=== PATIENT | male | born 1995 | race Caucasian/White ===

== ENCOUNTER 2018-02-03 18:14 | Inpatient (IN) | payer BC ==
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
[2018-02-03 18:45] LABS: PLATELET COUNT 268 10^3/uL (150-400)
[2018-02-03 19:07] LABS: CREATINE KINASE 879 IU/L (0-224)
[2018-02-03] MEDS ORDERED: ONDANSETRON 4 MG/2 ML VIAL IVP PRN (19:30)
[2018-02-03] MEDS ORDERED: ACETAMINOPHEN 325 MG TAB PO PRN (19:30)
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
[2018-02-03] MEDS: HYDROmorphONE/DILAUDID 1 MG/ML INJ IVP PRN ×2 (21:09→23:55)
[2018-02-03] MEDS: NS 1,000 ML IV SCH (21:10)
[2018-02-03] MEDS ORDERED: IBUPROFEN 600 MG TAB PO SCH (22:00)
[2018-02-04] MEDS: HYDROmorphONE/DILAUDID 1 MG/ML INJ IVP PRN ×5 (01:56→20:42)
[2018-02-04] MEDS ORDERED: KETOROLAC 30 MG/1 ML SDV IVP PRN (02:26)
[2018-02-04] MEDS: oxyCODONE IR 5 MG TAB PO PRN ×6 (02:39→20:42)
[2018-02-04 05:59] LABS: CREATINE KINASE 2819 IU/L (0-224)
[2018-02-04] MEDS: NS 1,000 ML IV SCH ×2 (08:15→17:36)
[2018-02-04] MEDS: PANTOPRAZOLE SODIUM 40 MG TAB PO SCH (08:18)
[2018-02-04] MEDS: GABAPENTIN 300 MG CAP PO SCH ×3 (08:23→22:29)
[2018-02-04] MEDS: KETOROLAC 15 MG/1 ML SDV IVP SCH ×2 (12:04→17:34)
--- NOTE | 2018-02-04 12:38 | TRAUMAPNT ---
Trauma Tertiary Progress Note Assessment/Plan: No new overnight events. C/O severe pain in foot and ankle. Unable to stand or bear weight. No leg complaints. No abd complaints. No other new concerns. AVSS. neck nontender. heart reg. lungs clear. abd nontender. normal left leg. right leg normal thigh and calf. exquisite right foot swelling and tenderness. difficulty moving ankle but able to flex and extend a few degrees. skin intact. compartments feel soft. ecchymosis (no ischemia) lateral foot. Crush injury right foot, rhabdo. Will obtain MRI to assess for ligamentous injury. CPK elevation - cont IVF and hydration. PT/OT. Pain control - add toradol and gabapentin. Final reccs to follow. Objective: Vital Signs Temp Pulse Resp BP Pulse Ox 36.7 C 81 14 122/68 H 91 L 02/04/18 07:33 02/04/18 07:33 02/04/18 07:33 02/04/18 07:33 02/04/18 07:33 Laboratory Results 02/04/18 04:58 02/03/18 02/04/18 02/05/18 05:59 05:59 05:59 Intake Total 2750 Output Total 700 Balance 2049
[2018-02-04] MEDS: ENOXAPARIN 40 MG/0.4 ML SYR SC SCH (13:40)
--- NOTE | 2018-02-04 13:56 | ASMTCMCOM ---
CM Note CM Note Notes: Pt has LE crush injury while hiking. Pt has partner. Pt can stay with a friend with less stairs at d/c. PT/OT rec home. Anticipate pt will d/c when medically stable, no CM d/c needs identified. CM available for changes/needs. Date Signed: 02/04/2018 01:55 PM Electronically Signed By:TAYLOR Corea
--- NOTE | 2018-02-04 17:24 | PDMN ---
Medical Necessity Medical necessity: Change to inpt as of 02/04/18 @ 17:10. Pt meets inpt criteria per MD order and Musculoskeletal Disease GRG. 22 y/o admitted w/severe R foot/ankle pain after sustaining crush injury to R foot. Upgraded to inpt as pt is unable to bear wt on R foot, persistent severe pain requiring IV pain meds (Dilaudid, Toradol) roughly every 2-4 hrs in addition to PO pain meds. CPK elev, rhabdo, cont IVF. Anticipate>2MN for ongoing eval/management of above.
--- NOTE | 2018-02-04 18:46 | TRAUMAPN ---
Trauma Progress Note Assessment/Plan: MRI reviewed with rads - ligamentous injuries only. pain slightly improved on pm rounds. unable to bear weight still. gabapentin and toradol helping. foot remains soft without concerns for compartment syndrome. continued supportive care. walking boot when begins to ambulate. reviewed MRI findings with ortho who remains in agreement with above plan. voiding large volume clear, light urine this evening - repeat CPK in am to ensure improvement. No new overnight events. C/O severe pain in foot and ankle. Unable to stand or bear weight. No leg complaints. No abd complaints. No other new concerns. AVSS. neck nontender. heart reg. lungs clear. abd nontender. normal left leg. right leg normal thigh and calf. exquisite right foot swelling and tenderness. difficulty moving ankle but able to flex and extend a few degrees. skin intact. compartments feel soft. ecchymosis (no ischemia) lateral foot. Crush injury right foot, rhabdo. Will obtain MRI to assess for ligamentous injury. CPK elevation - cont IVF and hydration. PT/OT. Pain control - add toradol and gabapentin. Final reccs to follow. Objective: Vital Signs Temp Pulse Resp BP Pulse Ox 36.6 C 66 10 L 109/70 90 L 02/04/18 15:48 02/04/18 15:48 02/04/18 15:48 02/04/18 15:48 02/04/18 15:48
[2018-02-05] MEDS: KETOROLAC 15 MG/1 ML SDV IVP SCH ×2 (03:12→05:47)
[2018-02-05] MEDS: oxyCODONE IR 5 MG TAB PO PRN ×4 (03:12→12:04)
[2018-02-05 06:22] LABS: CREATINE KINASE 1329 IU/L (0-224)
[2018-02-05 08:34] VITALS: BP 124/65
[2018-02-05] MEDS: GABAPENTIN 300 MG CAP PO SCH ×2 (08:53→12:36)
[2018-02-05] MEDS: PANTOPRAZOLE SODIUM 40 MG TAB PO SCH (08:54)
[2018-02-05] MEDS: ENOXAPARIN 40 MG/0.4 ML SYR SC SCH (08:54)
[2018-02-05 09:01] LABS: PLATELET COUNT 237 10^3/uL (150-400)
[2018-02-05] MEDS: IBUPROFEN 800 MG TAB PO SCH ×2 (09:16→12:04)
--- NOTE | 2018-02-05 10:54 | TRAUMAPN ---
Trauma Progress Note - Problem/Surgery Performed (1) Tibialis posterior tendinopathy Assessment/Plan: with partial distal tear/discussed immobilization and ortho and/or podiatry follow up after returning to [place] (2) peroneal longus tendinopathy Assessment/Plan: with associated partial tear/discussed immobilization and ortho or podiatry follow up after returning to [place] (3) Crushing injury of right ankle, initial encounter Assessment/Plan: mechanism of injury, no secondary injuries identified (4) Rhabdomyolysis Assessment/Plan: resolving with observation and hydration/no signs or symptoms of compartment syndrome I recommend continuing LMWH 40 mg SC daily for 10 days Qualifiers: Rhabdomyolysis type: traumatic Encounter type: initial encounter Qualified Code(s): T79.6XXA - Traumatic ischemia of muscle, initial encounter Assessment/Plan: patient is ambulating with crutches and is to be fitted with a walking boot prior to discharge. He plans on driving home to [place] when released and was instructed to follow up with his PCP this coming week. Rx for Oxy-IR, Lovenox, Senokot, Ibuprofen, Neurontin on chart Subjective: resting comfortably with friends from [place] at the bedside. Has not been fitted for a walking boot yet Objective: Vital Signs Temp Pulse Resp BP Pulse Ox 36.7 C 93 16 124/65 H 90 L 02/05/18 08:00 02/05/18 08:00 02/05/18 08:00 02/05/18 08:00 02/05/18 08:00 Laboratory Results 02/05/18 05:20 02/05/18 05:20 02/04/18 02/05/18 02/06/18 05:59 05:59 05:59 Intake Total 350 450 Balance 350 450 - C-Spine Clearance Cervical Spine Cleared: Yes Provider who Cleared Cervical Spine: Tanvir Physical Exam - Physical Exam General Appearance: alert, mild distress Respiratory: lungs clear Cardiac/Chest: regular rate, rhythm Peripheral Pulses: 1+: dorsalis-pedis (R) (difficult to palpate due to swelling) , 4+: dorsalis-pedis (L) Extremities: other (swelling right foot, ankle and lateral calf. compartments soft, but tender. good cap refill) Neuro/Psych: alert, normal mood/affect, oriented x 3, sensory deficit ( hypoesthesia plantar, hyperesthesia dorsum of foot) Time Spent w/Patient (minutes): 25
[2018-02-05] MEDS ORDERED: SENNOSIDES/DOCUSATE SODIUM TAB PO SCH (11:00)
[2018-02-05] MEDS ORDERED: PNEUMOCOCCAL 0.5ML VACCINE VIAL (PNEUMOVAX 23) IM ONE (11:24)
--- NOTE | 2018-02-05 12:06 | ASMTLACE ---
LACE Length of stay for Answers: Less than 1 day current admission Acuity / Level of Answers: Yes Care: Did the patient have an inpatient admission? Comorbidities - select Answers: Other Notes: foot fractures all that apply # of Emergency department Answers: 1-2 visits in the last 6 months Score: 5 Date Signed: 02/05/2018 12:05 PM Electronically Signed By:Kayleen Sharp
--- NOTE | 2018-02-05 12:20 | ASDISCHSUM ---
Discharge Information Plan Status:Home with No Needs Medically Cleared to Leave:02/04/2018 Discharge Date:02/04/2018 CM D/C Disposition:Home, Routine, Self-Care ADT D/C Disposition:Home, Routine, Self-Care Projected Discharge Date:02/05/2018 12:00 AM Transportation at D/C:Friend Discharge Delay Reason: Follow-Up Date:02/05/2018 12:00 AM Discharge Slot: Final Diagnosis:foot multiple fractures Placement Information Patient Contact Information Contact Name:BETO Relationship: Address:[facility] [address] Work Phone: City:[facility] Phone: State/Zip Code:[place] [address] Email: Financial Information Financial Class:BC Primary Plan Desc: OUT OF STATE [facility] Primary Plan Number:[id number] Secondary Plan Desc: Secondary Plan Number: Assessment Information LACE LACE Length of stay for Answers: Less than 1 day current admission Acuity / Level of Answers: Yes Care: Did the patient have an inpatient admission? Comorbidities - select Answers: Other Notes: foot fractures all that apply # of Emergency department Answers: 1-2 visits in the last 6 months Score: 5 Date Signed: 02/05/2018 12:05 PM Electronically Signed By:Kayleen Sharp [facility] CM Progress Note CM Note CM Note Notes: Pt has LE crush injury while hiking. Pt has partner. Pt can stay with a friend with less stairs at d/c. PT/OT rec home. Anticipate pt will d/c when medically stable, no CM d/c needs identified. CM available for changes/needs. Date Signed: 02/04/2018 01:55 PM Electronically Signed By:TAYLOR Corea Case Management Discharge Plan Note Case Management Discharge Discharge Order Complete? Answers: Yes Patient to Obtain Answers: via Family Medications Transportation Arranged Answers: Family/Friends Transport will Pick (Date 02/05/2018 12:00 AM & Time) Family Notified Answers: Yes Notes: by pt; friends in room Discharge Comments Notes: Spoke with pt in the room. Pt to discharge home to friend's house. Pt requested information on billing and was given business card for financial counseling. Financial counseling notified that pt inquired. No CM needs notes at this time. Date Signed: 02/05/2018 12:19 PM Electronically Signed By:Kayleen Sharp Intervention Information
[2018-02-05] MEDS ORDERED: ACETAMINOPHEN 500 MG TAB PO SCH (14:00)
--- NOTE | 2018-02-05 14:10 | PDDCSUM ---
Discharge Summary Discharge Summary: #[id number] Discharge Summary Dictated S MD Maddy, FACS
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
== END 2018-02-05 12:51 | disposition home or self-care (01) | DRG 914 ==
LOC: F3N 20:23 → OBSVTOIN 02-04 17:10
PROVIDERS: ADMIT Surgery; ATTEND Surgery
DX: S97.01XA Crushing injury of right ankle, initial encounter (principal); S93.491A Sprain of other ligament of right ankle, initial encounter; T79.6XXA Traumatic ischemia of muscle, initial encounter; Z23 Encounter for immunization; W23.1XXA Caught, crushed, jammed, or pinched between stationary objects, initial encounter; Y92.828 Other wilderness area as the place of occurrence of the external cause; Y93.01 Activity, walking, marching and hiking
CPT/HCPCS: 82435-PO; 82565-PO; 82947-PO; 84132-PO; 84295-PO; 84520-PO; 85014-PO; 97116-GP; 97161-GP; 97165-GO; 97530-GP; 97535-GO; G0009; G0378; J1170; J1650; J1885